=== PATIENT | male | born 1950 | race Caucasian/White ===

== ENCOUNTER 2023-07-11 15:49 | Outpatient (CLI) | payer MEDICARE, BC ==
[2023-07-11 17:16] LABS: Hematocrit 37.5 % (38.8-50.0); Hemoglobin 11.6 g/dL (13.5-17.5); Mean Corpuscular HGB CONC 30.9 g/dL (32.0-36.0); Mean Corpuscular Hemoglobin 30.3 pg (27.0-33.0); Mean Corpuscular Volume 97.9 fl (81.2-95.1); Mean Platelet Volume 10.5 fl (7.4-10.4); Platelet Count 230 10x3/uL (150-450); RBC Distribution Width 14.9 % (11.5-14.5); Red Blood Cell (RBC) Count 3.83 10x6/uL (4.32-5.72); White Blood Cell (WBC) Count 8.3 10x3/uL (3.5-10.5)
[2023-07-11 17:21] LABS: PTT 30.1 sec (22.0-33.0); Prothrombin Time 11.1 sec (9.5-12.1)
[2023-07-11 17:23] LABS: Anion Gap 13 mmol/L (10-20); BUN (Urea Nitrogen) 16 mg/dL (8.4-25.7); Calc. Creatinine Clearance 0 mL/min (70-130); Carbon Dioxide 24 mmol/L (23-31); Chloride 105 mmol/L (98-107); Estimated GFR 93; Glucose 142 mg/dL (83-110); Potassium 4.4 mmol/L (3.5-5.1); Sodium 138 mmol/L (136-145)
== END 2023-07-11 15:50 | disposition home or self-care (01) ==
LOC: LABBT 15:49
PROVIDERS: ATTEND Urology
DX: Z01.812 Encounter for preprocedural laboratory examination (principal); N40.1 Benign prostatic hyperplasia with lower urinary tract symptoms; R33.8 Other retention of urine
CPT/HCPCS: 80048; 85027; 85610; 85730

== ENCOUNTER 2023-07-15 07:27 | Day surgery (SDC) | payer MEDICARE, BC ==
[2023-07-11 16:49] VITALS: BMI 30.4
[2023-07-15] MEDS ORDERED: fentaNYL 50 mcg/mL 1 mL Vial ONE (11:14)
[2023-07-15] MEDS ORDERED: fentaNYL PF 100 MCG/2 ML SYRINGE ONE (11:14)
[2023-07-15] MEDS ORDERED: LevoFLOXacin 500 mg/D5W 100 ML BAG ONE (11:30)
[2023-07-15] MEDS ORDERED: Lidocaine 1% PF 5 ML VIAL ONE (11:31)
[2023-07-15] MEDS ORDERED: PROPOFOL 200 MG/20 ML VIAL ONE (11:31)
[2023-07-15] MEDS ORDERED: Rocuronium Bromide 10 MG/ML (10ML VIAL) ONE (11:31)
[2023-07-15] MEDS ORDERED: Phenazopyridine HCl 100 MG TAB ONE (13:36)
[2023-07-15] MEDS ORDERED: Oxybutynin 5 MG TAB ONE (13:36)
== END 2023-07-15 16:12 | disposition home or self-care (01) ==
LOC: SDC 07:27
PROVIDERS: ATTEND Urology
PROC: 0VT08ZZ Resection of Prostate, Via Natural or Artificial Opening Endoscopic (ICD-10-PCS; principal; 2023-07-15)
DX: N40.1 Benign prostatic hyperplasia with lower urinary tract symptoms (principal); R33.9 Retention of urine, unspecified; E11.9 Type 2 diabetes mellitus without complications; K21.9 Gastro-esophageal reflux disease without esophagitis; E78.5 Hyperlipidemia, unspecified; I10 Essential (primary) hypertension; N17.9 Acute kidney failure, unspecified; E83.42 Hypomagnesemia; E87.5 Hyperkalemia; G47.00 Insomnia, unspecified; Z90.89 Acquired absence of other organs; Z79.01 Long term (current) use of anticoagulants; Z88.0 Allergy status to penicillin; Z88.1 Allergy status to other antibiotic agents; Z79.84 Long term (current) use of oral hypoglycemic drugs; Z79.899 Other long term (current) drug therapy
CPT/HCPCS: 52601; J3010; 88305; J1956; J2704